=== PATIENT | male | born 1980 | race Caucasian/White ===

== ENCOUNTER 2017-06-23 14:24 | Emergency (ER) | payer BC, OTHER ==
[2017-06-23] MEDS ORDERED: Sodium Chloride 0.9% 1,000 ML IV ONE (14:30)
--- NOTE | 2017-06-23 14:36 | EDM.PDOC ---
ED HPI GENERAL MEDICAL PROBLEM - General Chief Complaint: Trauma Stated Complaint: FALL FROM 10-15 MINUTES Time Seen by Provider: 06/23/17 14:24 Source of Information: Reports: Patient, EMS History Limitations: Reports: No Limitations. Denies: Altered Mental Status, Intoxication, Respiratory Distress - History of Present Illness INITIAL COMMENTS - FREE TEXT/NARRATIVE: 36 YO WM presents by EMS after fall from ladder at work. Pt states the ladder slipped out from under him causing him to fall backward landing on his back. Pt denies any loss of consciousness. Pt states he remembers the fall and immediately after the event. Pt denies any headache, but states he's having difficulty hearing out of his left ear. EMS noticed blood coming from left ear canal. Pt complaining of right hand pain only. Pt denies any chest pain or difficulty breathing. Pt has a laceration to the palmar surface of his right hand. Pt denies any nausea/vomiting. Pt is alert and oriented x 4. Onset: Today Onset Date: 06/23/17 Onset Time: 14:00 Duration: Minutes: Location: Reports: Head, Upper Extremity, Right Quality: Reports: Ache Severity: Mild Improves with: Reports: None Worsens with: Reports: Movement Associated Symptoms: Reports: No Other Symptoms. Denies: Confusion, Chest Pain , Diaphoresis, Nausea/Vomiting, Shortness of Breath, Syncope, Weakness - Related Data Allergies Allergy/AdvReac Type Severity Reaction Status Date / Time No Known Drug Allergies Allergy Cannot Verified 06/23/17 15:03 Remember Home Meds: Home Meds . [No Known Home Meds] 06/23/17 [History] Review of Systems - Review of Systems Review Of Systems: See Below Constitutional: Reports: No Symptoms Eyes: Reports: No Symptoms Ears: Reports: Serosanguinous Discharge (left ear canal) Nose: Reports: No Symptoms Mouth/Throat: Reports: No Symptoms Respiratory: Reports: No Symptoms Cardiovascular: Reports: No Symptoms GI/Abdominal: Reports: No Symptoms Genitourinary: Reports: No Symptoms Musculoskeletal: Reports: No Symptoms Skin: Reports: Wound (8cm laceration to palmar surface of right hand) Neurological: Reports: No Symptoms Psychiatric: Reports: No Symptoms ED EXAM, GENERAL - Physical Exam Exam: See Below Exam Limited By: No Limitations Eye Exam: Bilateral Eye: EOMI, PERRL Ears: Other (ruptured TM on left side with serosaganius blood in ear canal). No : Hearing Grossly Normal, Normal TMs Ear Exam: Left Ear: Bleeding, TM Perforation Nose: Normal Inspection, Normal Mucosa, No Blood Throat/Mouth: Normal Inspection, Normal Lips, Normal Teeth, Normal Gums, Normal Oropharynx, Normal Voice, No Airway Compromise Head: Atraumatic, Normocephalic Neck: Normal Inspection, Supple, Non-Tender, Full Range of Motion Respiratory/Chest: No Respiratory Distress, Lungs Clear, Normal Breath Sounds, No Accessory Muscle Use, Chest Non-Tender Cardiovascular: Normal Peripheral Pulses, Regular Rate, Rhythm, No Edema, No Gallop, No JVD, No Murmur, No Rub GI/Abdominal: Normal Bowel Sounds, Soft, Non-Tender, No Organomegaly, No Distention, No Abnormal Bruit, No Mass Back Exam: Normal Inspection, Full Range of Motion, NT Extremities: Normal Inspection, Normal Range of Motion, Non-Tender, Normal Capillary Refill, No Pedal Edema Neurological: Alert, Oriented, CN II-XII Intact, Normal Cognition, Normal Gait, Normal Reflexes, No Motor/Sensory Deficits Psychiatric: Normal Affect, Normal Mood Skin Exam: Wound/Incision (8cm laceration to palmar surface of right hand) Lymphatic: No Adenopathy ED TRAUMA PROCEDURES - Laceration/Wound Repair Right Hand Lac/Wound Length In cm: 8 Appearance: Superficial, Clean Distal NVT: Neuro & Vascular Intact Anesthetic Type: Local Local Anesthesia - Lidocaine (Xylocaine): 1% Plain Local Anesthetic Volume: Other (10cc) Skin Prep: Providone-Iodine (Betadine), Saline Exploration/Debridement/Repair: Wound Explored Closed With: Sutures Suture Size: 4-0 # of Sutures: 6 Suture Type: Running Drain Placement: No Sterile Dressing Applied: Provider Tetanus Status Addressed: Yes Complications: No Course - Vital Signs Last Recorded V/S: Last Vital Signs Temp Pulse 107 H 06/23/17 14:24 Resp 18 06/23/17 14:24 BP 122/82 06/23/17 14:24 Pulse Ox 100 06/23/17 14:24 - Orders/Labs/Meds Orders: Active Orders 24 hr Category Date Time Status Cervical Spine wo Cont [CT] Stat Exams 06/23/17 14:29 Ordered Chest 1V Frontal [CR] Stat Exams 06/23/17 14:29 Ordered Hand Comp Min 3V Rt [CR] Stat Exams 06/23/17 14:29 Ordered Head wo Cont [CT] Stat Exams 06/23/17 14:29 Ordered Pelvis 1V or 2V [CR] Stat Exams 06/23/17 14:29 Ordered URINALYSIS W/MICROSCOPIC [UA W/MICROSCOPIC] [URIN] Stat Lab 06/23/17 14:39 Uncollected Labs: Laboratory Tests 06/23/17 06/23/17 06/23/17 Range/Units 14:28 14:28 14:28 WBC 11.1 H (5.0-10.0) 10^3/uL RBC 5.46 (4.50-6.00) 10^6/uL Hgb 16.2 (13.0-17.0) g/dL Hct 47.2 (40.0-52.0) % MCV 86.6 (82.0-92.0) fL MCH 29.6 (27.0-31.0) pg MCHC 34.2 (32.0-36.0) g/dL RDW 11.7 (11.5-14.5) % Plt Count 346 H (150-300) 10^3/uL MPV 7.2 L (7.4-10.4) fL Neut % (Auto) 70.4 H (50.0-70.0) % Lymph % (Auto) 21.6 (20.0-40.0) % Wetzel % (Auto) 6.8 (2.0-8.0) % Eos % (Auto) 0.5 L (1.0-3.0) % Baso % (Auto) 0.7 (0.0-1.0) % Neut # (Auto) 7.7 H (2.5-7.0) 10^3/uL Lymph # (Auto) 2.4 (1.0-4.0) 10^3/uL Wetzel # (Auto) 0.8 (0.1-0.8) 10^3/uL Eos # (Auto) 0.1 (0.1-0.3) 10^3/uL Baso # (Auto) 0.1 (0.0-0.1) 10^3/uL PT 10.4 (8.9-11.4) SEC INR 1.0 (0.9-1.1) APTT 21.3 (20.8-31.2) SEC Sodium 141 (136-145) mmol/L Potassium 3.8 (3.3-5.3) mmol/L Chloride 103 (98-115) mmol/L Carbon Dioxide 26.4 (21.0-32.0) mmol/L BUN 21 (6-25) mg/dL Creatinine 1.27 H (0.51-1.17) mg/dL Est Cr Clr Drug Dosing TNP Estimated GFR (MDRD) > 60 mL/min Glucose 100 (70-110) mg/dL Calcium 9.8 (8.7-10.3) mg/dL Total Bilirubin 1.0 (0.2-1.0) mg/dL AST 20 (15-37) U/L ALT 35 (12-78) U/L Alkaline Phosphatase 70 (46-116) IU/L Creatine Kinase 138 (26-276) U/L CK-MB (CK-2) 0.60 (0.00-4.30) ng/mL Total Protein 8.8 H (6.4-8.2) g/dL Albumin 4.86 H (3.00-4.80) g/dL Meds: Medications Discontinued Medications Generic Name Dose Route Start Last Admin Trade Name Freq PRN Reason Stop Dose Admin Sodium Chloride 1,000 mls @ 999 mls/hr 06/23/17 14:30 Normal Saline IV 06/23/17 15:30 .BOLUS ONE Lidocaine HCl Confirm 06/23/17 14:54 Xylocaine 1% Administered 06/23/17 14:55 Dose 20 ml .ROUTE .K-MED ONE - Radiology Interpretation Free Text/Narrative:: CT Head- Basilar skull fracture on left CT cervical- NAD CXR- NAD Pelvis- NAD right hand/wrist- NAD Departure - Departure Time of Disposition: 16:05 Disposition: DC/Tfer to Acute Hospital 02 Condition: Serious Clinical Impression: Basilar skull fracture Qualifiers: Encounter type: initial encounter Fracture type: closed Laterality: left Qualified Code(s): S02.102A - Fracture of base of skull, left side, initial encounter for closed fracture Laceration of hand Qualifiers: Encounter type: initial encounter Foreign body presence: without foreign body Laterality: right Qualified Code(s): S61.411A - Laceration without foreign body of right hand, initial encounter - Discharge Information Forms: Interfacility Transfer EMTALA - My Orders Last 24 Hours: My Active Orders 06/23/17 14:29 Cervical Spine wo Cont [CT] Stat Chest 1V Frontal [CR] Stat Hand Comp Min 3V Rt [CR] Stat Head wo Cont [CT] Stat Pelvis 1V or 2V [CR] Stat 06/23/17 14:39 URINALYSIS W/MICROSCOPIC [UA W/MICROSCOPIC] [URIN] Stat - Assessment/Plan Last 24 Hours: My Active Orders 06/23/17 14:29 Cervical Spine wo Cont [CT] Stat Chest 1V Frontal [CR] Stat Hand Comp Min 3V Rt [CR] Stat Head wo Cont [CT] Stat Pelvis 1V or 2V [CR] Stat 06/23/17 14:39 URINALYSIS W/MICROSCOPIC [UA W/MICROSCOPIC] [URIN] Stat Assessment:: 1. Basilar skull fracture 2. fall from 15 ft 3. 8cm laceration to right palm Plan: 1. transfer to [facility] for further evaluation and treatment
[2017-06-23] MEDS ORDERED: Lidocaine 1% 20 ML MDV ONE (14:54)
[2017-06-23 15:04] LABS: CHLORIDE,CL 103 mmol/L (98-115); SODIUM,NA 141 mmol/L (136-145)
[2017-06-23 15:20] VITALS: BP 122/82
== END 2017-06-23 16:30 ==
LOC: KA.ED 14:24
DX: S02.102A Fracture of base of skull, left side, initial encounter for closed fracture (principal); S61.411A Laceration without foreign body of right hand, initial encounter; W11.XXXA Fall on and from ladder, initial encounter; Y99.0 Civilian activity done for income or pay
CPT/HCPCS: 12004; 36415; 70450; 71010; 72125; 72170; 73130; 80053; 82550; 82553; 85025; 85610; 85730; 96360; 96361; 99285; J7030